=== PATIENT | male | born 1965 | race Hispanic/Latino ===

== ENCOUNTER 2021-02-24 03:25 | Emergency (ER) | payer MEDICAID ==
[2021-02-24 03:50] VITALS: BP 125/87
--- NOTE | 2021-02-24 07:05 | Emergency Department Report ---
HPI - General Chief Complaint: Medical Clearance PUI?: Yes Time Seen by Provider: 02/24/21 06:53 - HPI HPI: 55-year-old male with history of hypertension and depression presents complaining of 1 day of "feeling dehydrated" and abdominal pain. Patient states that for 3 days he has been having upper respiratory symptoms including cough, congestion, and some chest congestion. 2 days ago he had a Covid test which was positive. He was prescribed azithromycin and decongestants which she has been taking but states that for the last day he feels dehydrated. He says that especially when he takes the medications he feels lightheaded and with dry mouth. He also feels mid lower abdominal pain with some mild nausea but no vomiting when he takes the prescribed azithromycin. He says he has been drinking plenty of fluids. He otherwise denies any headache, vision changes/double vision, neck pain, chest pain, shortness of breath, back pain, focal weakness, sensory changes, room spinning dizziness, or any other complaints. ED Past Medical Hx - Past Medical History Hx Hypertension: Yes Hx Psychiatric Treatment: Yes (depression) - Surgical History Past Surgical History?: No - Social History Smoking Status: Never Smoker Substance Use Type: Alcohol - Medications Home Medications: Home Medications Medication Instructions Recorded Confirmed Last Taken Type Ondansetron HCl [Zofran] 4 mg PO Q8H PRN #15 tablet 02/24/21 Unknown Rx ED Review of Systems ROS: Stated complaint: POSS DEHYDRATION Other details as noted in HPI Comment: All other systems reviewed and negative Constitutional: fever, malaise. denies: chills Eyes: denies: eye pain, vision change ENT: congestion. denies: ear pain, throat pain Respiratory: cough. denies: shortness of breath Cardiovascular: denies: chest pain, palpitations, syncope Gastrointestinal: abdominal pain, nausea. denies: vomiting Genitourinary: denies: dysuria, frequency Musculoskeletal: denies: back pain, joint swelling Skin: denies: rash, lesions Neurological: denies: headache, weakness, numbness, abnormal gait Physical Exam - Physical Exam Vital Signs: Vital Signs 02/24/21 03:44 Temperature 99.7 F H Pulse Rate 76 Respiratory 18 Rate Blood Pressure 125/87 [Left] O2 Sat by Pulse 98 Oximetry Physical Exam: GENERAL: Well developed and well nourished. No acute distress HEAD: Normocephalic. No obvious signs of trauma. ENT: Dry mucous membranes. EYES: Extraocular movements are intact. Pupils are equal round and reactive to light bilaterally NECK: Supple. Full ROM is intact. Trachea is midline. LUNGS: Nonlabored breathing. Equal chest rise bilaterally. Clear to auscultation bilaterally. CARDIOVASCULAR: Regular rate and rhythm. No murmurs or rubs. VASCULAR: Cap refill < 2 seconds ABDOMEN: Abdomen is soft and nondistended. There is no significant tenderness, guarding or rebound. SKIN: Skin is warm and dry NEURO: Patient is awake, alert, and oriented. accordion maker II-XII grossly intact. No focal deficits. Normal motor and sensory exam throughout. Normal speech. MUSCULOSKELETAL: No obvious deformities. No significant tenderness. Normal ROM throughout. BACK/SPINE: No costovertebral angle tenderness. ED Course Vital Signs 02/24/21 03:44 Temperature 99.7 F H Pulse Rate 76 Respiratory 18 Rate Blood Pressure 125/87 [Left] O2 Sat by Pulse 98 Oximetry ED Medical Decision Making - Lab Data Result diagrams: 02/24/21 07:28 02/24/21 07:28 Labs 02/24/21 02/24/21 07:28 07:28 WBC 3.9 L RBC 4.52 Hgb 13.8 Hct 40.9 MCV 90 MCH 30 MCHC 34 RDW 12.4 L Plt Count 151 Lymph % (Auto) 26.8 [place] % (Auto) 11.0 H Eos % (Auto) 0.7 Baso % (Auto) 0.5 Lymph # (Auto) 1.1 L [place] # (Auto) 0.4 Eos # (Auto) 0.0 Baso # (Auto) 0.0 Seg Neutrophils % 61.0 Seg Neutrophils # 2.4 Sodium 140 Potassium 4.6 Chloride 105.3 Carbon Dioxide 24 Anion Gap 15 BUN 23 H Creatinine 1.3 Estimated GFR 57 BUN/Creatinine Ratio 18 Glucose 105 H Calcium 9.3 Magnesium 2.10 Total Bilirubin 0.20 Direct Bilirubin < 0.2 Indirect Bilirubin 0.0 AST 24 ALT 23 Alkaline Phosphatase 71 Troponin T < 0.010 Total Protein 7.2 Albumin 3.9 Albumin/Globulin Ratio 1.2 Lipase 32 - EKG Data -: EKG Interpreted by La - EKG Data 02/24/21 10:20 Normal sinus rhythm. Normal axis. Normal intervals. No ectopy. Nonspecific T wave inversions. No significant ST segment abnormalities. - Medical Decision Making 55-year-old male recently diagnosed with Covid 2 days ago reports 1 day of dry mouth and lightheadedness with abdominal pain/nausea when he takes the prescribed azithromycin and [id number] cold medicine/decongestants. He is afebrile with normal vital signs. Physical examination reveals dry mucous membranes. He has a nonfocal neurologic exam. Lungs are clear to auscultation. He has no abdominal tenderness. Remainder of his physical exam is within normal limits. Symptoms are consistent with possible side effects of [id number] cold/cough medication containing dextromethorphan and/or decongestants. When prompted, patient reports that he has been taking Tessalon which does contain dextromethorphan. Nonetheless, we will plan to obtain chest x-ray and full set of labs as well as EKG. Will give 1 L of IV fluids, Zofran, and reassess. Labs have resulted and reveal mildly decreased white blood cell count of 3.9 and no significant anemia. Kidney function is normal and there are no significant electrolyte abnormalities. Chest x-ray reveals no acute abnormalities. At 10 AM, the patient reports that after receiving Zofran he feels entirely improved. He was offered to wait for IV fluids but states that he wants to go home and drink Gatorade instead. I have advised him to discontinue use of Tussin or any other products containing dextromethorphan or decongestants unless specifically advised to do so by his doctor. We will prescribe Zofran with instructions to follow-up with his doctor and return to the emergency department should he develop any worsening symptoms or other concerns. All this was discussed with the patient who expressed understanding agreement with the plan of care. Critical care attestation.: If time is entered above; I have spent that time in minutes in the direct care of this critically ill patient, excluding procedure time. ED Disposition Clinical Impression: COVID-19, Side effect of medication, Nausea Disposition: 01 HOME / SELF CARE / HOMELESS Is pt being admited?: No Condition: Stable Instructions: COVID-19 Frequently Asked Questions, Rehydration, Adult, Nausea and Vomiting, Adult Additional Instructions: Please stop use of all [id number] nasal decongestants and/or cold/flu medication, especially those containing the medication dextromethorphan. Finish the Z-Zac as prescribed. Take Zofran as needed for nausea and drink fluids containing electrolytes such as Gatorade or Pedialyte. Follow-up with your doctor in 2 to 3 days and return to the emergency department for any significantly worsening symptoms, new concerning symptoms, or any other health concerns. Finish your COVID-19 isolation. Prescriptions: Ondansetron HCl [Zofran] 4 mg PO Q8H PRN #15 tablet PRN Reason: Nausea And Vomiting Referrals: [facility] [Other] - 3-5 Days
[2021-02-24] MEDS ORDERED: ONDANSETRON 4 MG/2 ML INJ IM ONE (07:34)
[2021-02-24 07:56] LABS: Basophils % (Auto) 0.5 % (0.0-1.8); Eosinophils % (Auto) 0.7 % (0.0-4.3); Hematocrit 40.9 % (35.5-45.6); Hemoglobin 13.8 gm/dl (11.8-15.2); Lymphocytes # (Auto) 1.1 K/mm3 (1.2-5.4); Lymphocytes % (Auto) 26.8 % (13.4-35.0); Mean Corpuscular HGB Conc 34 % (32-34); Mean Corpuscular Volume 90 fl (84-94); Monocytes # (Auto) 0.4 K/mm3 (0.0-0.8); Platelet Count 151 K/mm3 (140-440); Red Blood Count 4.52 M/mm3 (3.65-5.03); Red Cell Distribution Width 12.4 % (13.2-15.2)
--- NOTE | 2021-02-24 08:02 | XRay Report ---
CHEST 2 VIEWS INDICATION: covid symp. COMPARISON: None. FINDINGS: Support devices: None. Heart: Within normal limits. Lungs/Pleura: No acute air space or interstitial disease. No significant pleural effusion. IMPRESSION: No acute findings. Signer Name: Errol Soria MD Signed: 02/24/2021 7:57 AM Workstation Name: [id number]
[2021-02-24 08:18] LABS: Alanine Aminotransferase 23 units/L (7-56); Albumin 3.9 g/dL (3.9-5); BUN/Creatinine Ratio 18; Blood Urea Nitrogen 23 mg/dL (9-20); Calcium 9.3 mg/dL (8.4-10.2); Hemolysis Index 6
[2021-02-24 08:23] LABS: Bilirubin,Direct < 0.2 mg/dL (0-0.2)
[2021-02-24] MEDS ORDERED: SODIUM CHLORIDE 0.9% 1000 ML 1,000 ML IV ONE (08:24)
[2021-02-24] MEDS ORDERED: ONDANSETRON 4 MG/2 ML INJ IV ONE (08:24)
--- NOTE | 2021-02-24 10:39 | Electrocardiograph Report ---
[facility] Test Date: 2021-02-24 Test Time: 08:44:56 Pat Name: MASON HEAD Department: Room: Gender: M Trackman: VALDEZ : 1965 Requested By: JESSE BARRIOS Order Number: [id number] Reading MD: Bret Najera Measurements Intervals [place] Rate: 66 P: 1 TN: 183 QRS: -7 QRSD: 85 T: 57 QT: 387 QTc: 405 Interpretive Statements Sinus rhythm Consider anterior infarct No previous ECG available for comparison Electronically Signed On 02-24-2021 10:39:25 EDT by Bret Najera
== END 2021-02-24 10:40 | disposition home or self-care (01) ==
LOC: ED 03:25
DX: U07.1 COVID-19 (principal); T50.905A Adverse effect of unspecified drugs, medicaments and biological substances, initial encounter; R11.0 Nausea; I10 Essential (primary) hypertension; F32.9 Major depressive disorder, single episode, unspecified; Y92.89 Other specified places as the place of occurrence of the external cause
CPT/HCPCS: 36415; 71046; 80048; 80076; 83690; 83735; 84484; 85025; 93005; 96372; 99284; J2405; J7030